=== PATIENT | male | born 1970 | race Caucasian/White ===

== ENCOUNTER 2016-09-01 12:28 | Emergency (ER) | payer SELFPAY ==
[2016-09-01] MEDS ORDERED: Aspirin 325 mg EC Tablets PO STA (13:14)
--- NOTE | 2016-09-01 13:21 | C.PDOC ---
History Of Present Illness 45 y/o male, who has been in the country for about 5 months from [place], with no PMD, presents to ED with c/o pricking, sharp pain sensation to the left precordium. Patient states pain comes and goes and is spontaneous, not brought on by any activity or movement. Patient reports the pain lasts 1-2 minutes, sometimes up to 5 minutes, and resolved on its own. Denies radiation of pain. Otherwise, denies fever, chills, diaphoresis, SOB, dyspnea, nausea, vomiting, abdominal pain, or other associated symptoms. Patient reports PMHx of HTN, currently taking amlodipine. Notes family history of [place] (father). Denies social history. Time Seen by Provider: 09/01/16 13:06 Chief Complaint (Nursing): Chest Pain History Per: Patient History/Exam Limitations: no limitations Onset/Duration Of Symptoms: Days Current Symptoms Are (Timing): Still Present Quality: Sharp ("pricking"), "Pain" Associated Symptoms: denies: Nausea, Dyspnea, Diaphoresis Modifying Factors: None Exacerbating Factors: None Recent travel outside of the [place]: Yes Past Medical History Reviewed: Historical Data, Nursing Documentation, Vital Signs Vital Signs: Last Vital Signs Temp 97.5 F L 09/01/16 12:35 Pulse 85 09/01/16 12:35 Resp 20 09/01/16 12:35 BP 156/89 H 09/01/16 12:35 Pulse Ox 97 09/01/16 13:25 - Medical History PMH: HTN Family History: States: [place] - Social History Hx Alcohol Use: No Hx Substance Use: No - Immunization History Hx Tetanus Toxoid Vaccination: No Hx Influenza Vaccination: No Hx Pneumococcal Vaccination: No Review Of Systems Except As Marked, All Systems Reviewed And Found Negative. Constitutional: Negative for: Fever, Chills Cardiovascular: Negative for: Palpitations Respiratory: Negative for: Cough, Shortness of Breath, Wheezing Gastrointestinal: Negative for: Nausea, Vomiting, Abdominal Pain Musculoskeletal: Positive for: Other (left-mid sternal chest wall pain ) Skin: Negative for: Rash Physical Exam - Physical Exam Appears: Non-toxic, No Acute Distress Skin: Normal Color, Warm, Dry Head: Atraumatic, Normacephalic Oral Mucosa: Moist Neck: Supple Chest: Symmetrical, No Tenderness, No Ecchymosis Cardiovascular: Rhythm Regular Respiratory: Normal Breath Sounds, No Rales, No Rhonchi, No Wheezing Gastrointestinal/Abdominal: Normal Exam, Soft, No Tenderness, No Guarding, No Rebound Back: Normal Inspection Extremity: Normal ROM, Capillary Refill (< 2 sec. ) Neurological/Psych: Oriented x3, Normal Speech, Normal Cognition ED Course And Treatment - Laboratory Results Result Diagrams: 09/01/16 13:24 09/01/16 13:24 Lab Interpretation: Normal ECG: Interpreted By Me ECG Rhythm: Sinus Rhythm ECG Interpretation: Normal Rate From EC (ra) O2 Sat by Pulse Oximetry: 97 (RA) Pulse Ox Interpretation: Normal - Radiology CXR: Viewed By Me, Read By Radiologist CXR Interpretation: Yes: No Acute Disease Progress Note: 13:15 - EKG, CxR, bloodwork ordered. Treated with Apsirin 325mg. Reevaluation Time: 14:16 Reassessment Condition: Improved (Patient remains comfortable in ED.) Disposition Counseled Patient/Family Regarding: Studies Performed, Diagnosis, Need For Followup, Rx Given - Disposition Referrals: at [facility] [Outside] Disposition: HOME/ ROUTINE Disposition Time: 14:16 Condition: IMPROVED Prescriptions: amLODIPine [Norvasc] 5 mg PO DAILY #30 tab Instructions: Noncardiac Chest Pain (ED), Hypertension (ED) - Clinical Impression Clinical Impression: Chest pain, Hypertension - Scribe Statement The provider has reviewed the documentation as recorded by the Richar Holt Provider Scribe Attestation: All medical record entries made by the Scribmelinda were at my direction and personally dictated by me. I have reviewed the chart and agree that the record accurately reflects my personal performance of the history, physical exam, medical decision making, and the department course for this patient. I have also personally directed, reviewed, and agree with the discharge instructions and disposition.
[2016-09-01] MEDS ORDERED: Aspirin 325 mg EC Tablets PO ONE (13:25)
--- NOTE | 2016-09-01 13:32 | RAD ---
PROCEDURE: CHEST RADIOGRAPH, 1 VIEW HISTORY: Chest pain COMPARISON: None available. FINDINGS: LUNGS: The lungs are well inflated and clear. PLEURA: No pneumothorax or pleural fluid seen. CARDIOVASCULAR: Normal. OSSEOUS STRUCTURES: No significant abnormalities. VISUALIZED UPPER ABDOMEN: Normal. OTHER FINDINGS: None. IMPRESSION: No active pulmonary disease.
[2016-09-01 13:36] LABS: BASO # 0.1 K/uL (0.0-0.2); BASO % 1.2 % (0.0-2.0); EOS # 0.2 K/uL (0.0-0.7); EOS % 3.3 % (0.0-4.0); HEMATOCRIT 42.7 % (35.0-51.0); LYMPH # 1.7 K/uL (1.0-4.3); LYMPH % 28.1 % (20.0-40.0); MEAN CELL VOLUME 81.5 fL (80.0-94.0); MEAN CORPUSCULAR HGB CONC 33.1 g/dL (33.0-37.0); MEAN PLATELET VOLUME 8.8 fL (7.2-11.7); MONO # 0.6 K/uL (0.0-0.8); MONO % 9.4 % (0.0-10.0); NRBC % 0.1 % (0.0-2.0); RED CELL DISTRIBUTION WIDTH 14.4 % (11.5-14.5)
[2016-09-01 13:46] LABS: CHLORIDE 100 mmol/L (98-107); POTASSIUM 3.8 mmol/L (3.6-5.2); SODIUM 138 mmol/L (132-148)
[2016-09-01 13:48] LABS: GFR AFRICAN-AMERICAN > 60
[2016-09-01 13:49] LABS: ALB/GLOB RATIO 1.4 (1.0-2.1); ALKALINE PHOSPHATASE 64 U/L (38-126); ALT/SGPT 41 U/L (21-72); AST/SGOT 54 U/L (17-59); BILIRUBIN,TOTAL 0.4 mg/dL (0.2-1.3); BLOOD UREA NITROGEN 16 mg/dL (9-20); CALCIUM 9.5 mg/dl (8.6-10.4); CARBON DIOXIDE 23 mmol/L (22-30); GLUCOSE,RANDOM 106 mg/dL (75-110); TOTAL PROTEIN 8.1 g/dL (6.3-8.3)
[2016-09-01 14:39] VITALS: BP 125/81; PULSE 66; RESP 18; TEMP 97.3; O2SAT 96
--- NOTE | 2016-09-09 08:38 | CARD ---
APPROVED REPORT EKG Measurement Heart [id number] <Conclusion> Poor data quality, interpretation may be adversely affected Normal sinus rhythm Normal ECG
== END 2016-09-01 14:30 | disposition home or self-care (01) ==
LOC: C.ER 12:28
DX: R07.9 Chest pain, unspecified (principal); I10 Essential (primary) hypertension